=== PATIENT | male | born 1955 | race Caucasian/White ===

== ENCOUNTER 2018-05-20 06:11 | Day surgery (SDC) | payer MEDICARE, BC ==
[2018-05-20] VITALS (8 sets, daily range): BP systolic 93–118; BP diastolic 68–87; PULSE 87–100; TEMP 97.4–97.7
[~2018-05-20] VITALS: Ht 182.9 cm; Wt 92.4 kg
[2018-05-20] MEDS ORDERED: LOPRESSOR 550 MG/TAB PO (06:33)
[2018-05-20] MEDS ORDERED: PRIL40 PO (06:33)
[2018-05-20] MEDS ORDERED: XARELTO20 MG PO (06:34)
[2018-05-20] MEDS ORDERED: ZOCOR 40MG40 MG PO (06:37)
[2018-05-20] MEDS ORDERED: TAMBOCOR50 MG PO (06:38)
== END 2018-05-20 14:34 | disposition home or self-care (01) ==
LOC: SDCO 06:11
DX: K40.90 Unilateral inguinal hernia, without obstruction or gangrene, not specified as recurrent (principal); D17.6 Benign lipomatous neoplasm of spermatic cord; I48.91 Unspecified atrial fibrillation; I10 Essential (primary) hypertension; I47.1 Supraventricular tachycardia; G47.33 Obstructive sleep apnea (adult) (pediatric); K21.9 Gastro-esophageal reflux disease without esophagitis; Z82.3 Family history of stroke; Z87.891 Personal history of nicotine dependence; Z79.01 Long term (current) use of anticoagulants
CPT/HCPCS: C1781; J0690; J1100; J1885; J2405; J2704; J2710; J3010; J7120